=== PATIENT | female | born 1990 | race African-American/Black ===

== ENCOUNTER 2024-10-28 12:08 | Emergency (ER) | payer OTHER ==
[~2024-10-28] VITALS: Ht 149.9 cm; Wt 50.6 kg
[2024-10-28] MEDS: ACETAMINOPHEN 325 MG TAB PO ONE (13:06)
[2024-10-28 14:57] VITALS: PULSE 88; RESP 14; TEMP 98.8; O2SAT 100
== END 2024-10-28 16:26 | disposition home or self-care (01) ==
LOC: FSED 12:20
DX: O02.81 Inappropriate change in quantitative human chorionic gonadotropin (hCG) in early pregnancy (principal); R10.30 Lower abdominal pain, unspecified
CPT/HCPCS: 36415; 76801; 76830; 80048; 80076; 81003; 81025; 84702; 85025; 86900; 99284

== ENCOUNTER 2024-10-31 22:10 | Emergency (ER) | payer OTHER ==
[~2024-10-31] VITALS: Ht 149.9 cm; Wt 51.3 kg
[2024-10-31 22:33] VITALS: PULSE 85; RESP 16; TEMP 98.4
[2024-10-31 23:06] LABS: CLARITY,URINE CLEAR (CLEAR); COLOR,URINE YELLOW (YELLOW); LEUKOCYTE ESTERASE ,URINE NEGATIVE (NEGATIVE); NITRITE,URINE NEGATIVE (NEGATIVE); PH,URINE 5.5 (5 - 7)
[2024-10-31 23:07] LABS: BILIRUBIN,URINE SMALL (NEGATIVE); GLUCOSE, URINE NEGATIVE (NEGATIVE); KETONES,URINE NEGATIVE (NEGATIVE); PROTEIN,URINE DIPSTICK 2+ (NEGATIVE); URINE UROBILINOGEN 1 mg/dL (0.2 - 1)
[2024-10-31 23:41] LABS: BACTERIA,URINE FEW /HPF; EPITHELIAL CELLS,URINE FEW /LPF; RBC,URINE 21-50 /HPF (0-5)
[2024-11-01 00:54] VITALS: BP 137/97; PULSE 68; RESP 16; TEMP 98.2; O2SAT 100
== END 2024-11-01 00:50 | disposition home or self-care (01) ==
LOC: ER 11-01 00:22
DX: O20.0 Threatened abortion (principal); R10.30 Lower abdominal pain, unspecified; M54.9 Dorsalgia, unspecified; O99.331 Smoking (tobacco) complicating pregnancy, first trimester
CPT/HCPCS: 36415; 81001; 84702; 99283